=== PATIENT | female | born 1955 | race Caucasian/White ===

== ENCOUNTER 2016-10-11 10:36 | Emergency (ER) | payer OTHER ==
[~2016-10-11] VITALS: Ht 162.6 cm; Wt 59.0 kg
[~2016-10-11 10:36] MED LIST: ADVIL200 MG PO; PERCOCET 325 MG1 TA2 PO; PRAVASTATIN SOD40 MG PO; PRINIVIL 5MG5 MG PO
--- NOTE | 2016-10-11 10:49 | ED MVC/FALL/TRAUMA COMPLAINT ---
History of Present Illness General Chief Complaint: Fall Stated Complaint: FALL Source: patient Exam Limitations: no limitations Vital Signs & Intake/Output Vital Signs & Intake/Output Vital Signs Date Time Temp Pulse Resp B/P Pulse O2 O2 Flow FiO2 Ox Delivery Rate 10/11 1042 98.0 98 20 153/67 100 Room Air Allergies Coded Allergies: NO KNOWN ALLERGIES (07/05/15) NKA PER ANTIBIOTIC ORDER SHEET OF 07/05/15 ([facility]) Reconcile Medications Lisinopril (Prinivil) 5 MG TAB 1 TAB PO DAILY BP (Reported) OXYCODONE HCL/ACETAMINOPHEN (Percocet 5-325 MG Tablet) 325 MG/5 MG TAB 1-2 TAB PO Q4P PRN PAIN SCALE 3-6 Pravastatin Sodium 40 MG TAB 1 TAB PO DAILY CHOLESTEROL (Reported) Triage Note: PT BIBA FROM HOME AFTER SLIP AND FALL ON ICE. PT DENIES LOC. PT WAS ABLE TO GET UP AND GO INSIDE HOUSE BEFORE CALLING 911. PT HAS ABRASION ABOVE RIGHT EYEBROW. DAUGHTER OF PT AT BEDSIDE Triage Nurses Notes Reviewed? yes Onset: Just prior to arrival Duration: hour(s): (1) Timing: single episode today Severity: moderate Injuries/Fall Location: head, lower extremity Loss of Consciousness: no loss of consciousness Modifying Factors: Worsens With: movement. HPI: 60 year old female who presents after slip and fall on the ice outside of the house hitting her head on the ground. No loss of consciousness. She has a small abrasion above the right eye. Complains of right knee and ankle pain. No neck pain. No prodromal symptoms. History of hypertension and dyslipidemia. No blood thinners. Past History Travel History Traveled to [place] past 21 day No Medical History Any Pertinent Medical History? see below for history Cardiovascular: hypertension, hyperlipidemia Renal: KIDNEY CANCER Cancer(s): LEFT URETER History of MRSA: No History of VRE: No History of CDIFF: No Surgical History Surgical History: non-contributory Psychosocial History Who do you live with Daughter Services at Home None What is your primary language Italian Tobacco Use: Never used ETOH Use: occasional use Illicit Drug Use: denies illicit drug use Family History Hx Contributory? No Review of Systems Review of Systems Constitutional: Denies: chills, fever. Eyes: Denies: blurred vision. Ears, Nose, Throat, Mouth: Reports: no symptoms. Respiratory: Denies: short of breath. Cardiovascular: Denies: chest pain. Gastrointestinal/Abdominal: Denies: abdominal pain. Genitourinary: Reports: no symptoms. Musculoskeletal: Reports: joint pain. Denies: muscle pain, muscle stiffness, neck pain. Skin: Reports: see HPI (ABRASION). Neurological/Psychological: Reports: headache. All Other Systems: Reviewed and Negative Physical Exam Physical Exam General Appearance: well developed/nourished, no apparent distress, awake Head: atraumatic, abrasion above right orbit Eyes: Bilateral: normal appearance, PERRL, EOMI. Ears, Nose, Throat, Mouth: hearing grossly normal, moist mucous membrane Neck: normal inspection, supple, full range of motion Respiratory: normal breath sounds, chest non-tender, no respiratory distress Cardiovascular: regular rate/rhythm Peripheral Pulses: 2+ radial (R), 2+ radial (L) Gastrointestinal: normal bowel sounds, soft, non-tender Extremities: normal range of motion Neurologic/Psych: no motor/sensory deficits, awake, alert, oriented x 3 Skin: intact, normal color, warm/dry Core Measures ACS in differential dx? No Severe Sepsis Present: No Septic Shock Present: No Progress Differential Diagnosis: C/T/L spine injury, ext injury, ICH Plan of Care: Current Medications Sig/Edinson Start time Last Medication Dose Stop Time Status Admin Ibuprofen 400 MG ONCE ONE 10/11 1230 UNVr (Motrin) 10/11 1231 tetanus, ibuprofen. imaging ordered. (GRISEL STRONG,PAUL) Diagnostic Imaging: Viewed by Me: Radiology Read, CT Scan. Discussed w/RAD: Radiology Read, CT Scan. Radiology Impression: PATIENT: XENIA CHAPPELL PRESENT AGE: 60 PATIENT ACCOUNT NO: [id number] : 53 LOCATION: [facility] ORDERING PHYSICIAN: PAUL RECINOS MD SERVICE DATE: 10/11/16 EXAM TYPE: RAD - XRY-ANKLE 3 OR MORE VIEWS R; XRY-KNEE COMPLETE RIGHT EXAMINATION: XR KNEE, RIGHT XR ANKLE, RIGHT CLINICAL INFORMATION: Status post fall. Rule out fracture. COMPARISON: None TECHNIQUE: Four views of the right knee. Three views of the right ankle. FINDINGS: Right knee: No evidence of joint effusion. Alignment is normal. No fracture or dislocation is seen. No significant joint space narrowing. There are small marginal osteophytes at the medial, lateral and patellofemoral joints. Right ankle: The ankle mortise is symmetric. The alignment is normal. No fracture or dislocation or acute osseous abnormality is seen. Incidental posterior calcaneal spur. IMPRESSION: 1. Mild degenerative changes are seen in the right knee without fracture or dislocation. 2. No acute osseous abnormality is seen in the right ankle. DICTATED BY: SHAAN PUENTE MD DATE/TIME DICTATED:10/11/161151 GRATED CHEESE MAKER:POZO DATE/TIME TRANSCRIBED:10/11/161151 CONFIDENTIAL, DO NOT COPY WITHOUT APPROPRIATE AUTHORIZATION. <Electronically signed in Other Vendor System> SIGNED BY: SHAAN PUENTE MD 10/11/16 1158, PATIENT: XENIA CHAPPELL PRESENT AGE: 60 PATIENT ACCOUNT NO: [id number] : 53 LOCATION: [facility] ORDERING PHYSICIAN: PAUL RECINOS MD SERVICE DATE: 10/11/16 EXAM TYPE: CAT - CT HEAD WO IV CONTRAST EXAMINATION: CT HEAD WITHOUT CONTRAST CLINICAL INFORMATION: 60-year-old woman status post fall. Right periorbital swelling and pain. COMPARISON: None available TECHNIQUE: 2.5 [address] slices were obtained from the skull base to the vertex. No intravenous contrast was administered. DLP: 529.16 mGy-cm FINDINGS: There is no evidence of acute infarct , mass, or hemorrhage. There is some edema and stranding of the fat in the subcutaneous soft tissues surrounding the right orbit. However, the right orbit and globe are normal in appearance. There is no underlying fracture. The lange- white matter junction and cortical ribbon are well defined throughout the cerebrum. The brainstem and cerebellum are unremarkable. No intra-axial or extra -axial fluid collections are seen. The ventricles and sulci are within normal in size and contour. The sinuses and mastoid air cells are clear. IMPRESSION: Mild right periorbital soft tissue swelling is noted. However, no underlying fracture. No intracranial hemorrhage. DICTATED BY: JOHNNY SHERMAN MD DATE/TIME DICTATED:10/11/161149 GRATED CHEESE MAKER:DEMETRIUS DATE/TIME TRANSCRIBED:1149 CONFIDENTIAL, DO NOT COPY WITHOUT APPROPRIATE AUTHORIZATION. < Electronically signed in Other Vendor System> SIGNED BY: JOHNNY SHERMAN MD 06/17 1200 Departure Departure Time of Disposition: 1217 Disposition: HOME OR SELF CARE Condition: Stable Clinical Impression Primary Impression: Periorbital contusion of right eye Secondary Impressions: Ankle abrasion, Fall, Knee contusion Referrals: Brandy JOAQUIN MD (PCP/Family) Additional Instructions: Take Tylenol or Motrin as needed for pain. Ice rest and elevate the knee and ankle. Follow-up with your doctor in the office. Return to the ER for any changing or worsening symptoms. Departure Forms: Customer Survey General Discharge Information
--- NOTE | 2016-10-11 11:58 | RADIOLOGY REPORT ---
EXAMINATION: XR KNEE, RIGHT XR ANKLE, RIGHT CLINICAL INFORMATION: Status post fall. Rule out fracture. COMPARISON: None TECHNIQUE: Four views of the right knee. Three views of the right ankle. FINDINGS: Right knee: No evidence of joint effusion. Alignment is normal. No fracture or dislocation is seen. No significant joint space narrowing. There are small marginal osteophytes at the medial, lateral and patellofemoral joints. Right ankle: The ankle mortise is symmetric. The alignment is normal. No fracture or dislocation or acute osseous abnormality is seen. Incidental posterior calcaneal spur. IMPRESSION: 1. Mild degenerative changes are seen in the right knee without fracture or dislocation. 2. No acute osseous abnormality is seen in the right ankle.
--- NOTE | 2016-10-11 12:00 | CT SCAN REPORT ---
EXAMINATION: CT HEAD WITHOUT CONTRAST CLINICAL INFORMATION: 60-year-old woman status post fall. Right periorbital swelling and pain. COMPARISON: None available TECHNIQUE: 2.5 and [address] slices were obtained from the skull base to the vertex. No intravenous contrast was administered. DLP: 529.16 mGy-cm FINDINGS: There is no evidence of acute infarct, mass, or hemorrhage. There is some edema and stranding of the fat in the subcutaneous soft tissues surrounding the right orbit. However, the right orbit and globe are normal in appearance. There is no underlying fracture. The lange-white matter junction and cortical ribbon are well defined throughout the cerebrum. The brainstem and cerebellum are unremarkable. No intra-axial or extra-axial fluid collections are seen. The ventricles and sulci are within normal in size and contour. The sinuses and mastoid air cells are clear. IMPRESSION: Mild right periorbital soft tissue swelling is noted. However, no underlying fracture. No intracranial hemorrhage.
[2016-10-11 12:24] VITALS: BP 119/58
== END 2016-10-11 12:38 ==
LOC: ERH 10:36
DX: S05.11XA Contusion of eyeball and orbital tissues, right eye, initial encounter (principal); S80.01XA Contusion of right knee, initial encounter; S90.511A Abrasion, right ankle, initial encounter; W00.0XXA Fall on same level due to ice and snow, initial encounter
CPT/HCPCS: 73562-RT; 73610-RT; 90471; 90714